=== PATIENT | male | born 1975 | race Caucasian/White ===

== ENCOUNTER 2020-04-26 12:17 | Emergency (ER) | payer OTHER ==
[2020-04-26] MEDS ORDERED: DIPH/PERTUSS(ACELL)/TETANUS VAC/PF 0.5 ML SYR (>=10YO) IM ONE (12:26)
[2020-04-26 12:27] VITALS: BP 141/89
--- NOTE | 2020-04-26 12:41 | ER Document Report ---
HPI - HPI Time Seen by Provider: 04/26/20 12:25 Pain Level: 2 Context: Patient is a 44-year-old male who presents to the emergency department with a chief complaint of puncture wounds to his left second and third digit. Patient had a nail gun and the nail gun and bouncing off the wood and the nail gun shot off into his fingers. Patient states that he was able to pull the nail out of his fingers. Patient is unsure as to when his last tetanus immunization was. Patient is right hand dominant. - ROS Systems Reviewed and Negative: Yes All other systems reviewed and negative - CONSTITUTIONAL Constitutional: DENIES: Fever, Chills - NEURO Neurology: DENIES: Weakness - MUSCULOSKELETAL Musculoskeletal: REPORTS: Extremity pain - left 2nd and 3rd digit of hand - DERM Skin Color: Normal Skin Problems: None Past Medical History - General Information source: Patient - Social History Smoking Status: Never Smoker Chew tobacco use (# tins/day): No Frequency of alcohol use: Occasional Drug Abuse: None Family History: Reviewed & Not Pertinent Vertical Provider Document - CONSTITUTIONAL Agree With Documented VS: Yes Exam Limitations: No Limitations General Appearance: No Apparent Distress - HEENT HEENT: Atraumatic, Normocephalic, PERRLA - RESPIRATORY Respiratory: No Respiratory Distress - CARDIOVASCULAR Cardiovascular: Regular Rate, Regular Rhythm Pulses: Normal: Radial - MUSCULOSKELETAL/EXTREMETIES Musculoskeletal/Extremeties: FROM - NEURO Level of Consciousness: Awake, Alert, Appropriate - DERM Integumentary: Warm, Dry, No Rash Notes: Entrance and exit puncture wounds noted to left second and third digits Course - Re-evaluation Re-evalutation: 04/26/20 13:11 Patient's x-ray is negative for any acute fracture. We will start the patient on Keflex to prevent infection. Patient received his tetanus vaccine here in the emergency department. He will follow-up with his primary care provider if needed. Follow-up precautions were given. Verbal discharge instructions were given to the patient. They verbalized understanding. They are stable for discharge. - Vital Signs Vital signs: Temp Pulse Resp BP Pulse Ox 98.9 F 85 18 141/89 H 96 04/26/20 12:26 04/26/20 12:26 04/26/20 12:26 04/26/20 12:26 04/26/20 12:26 Discharge - Discharge Clinical Impression: Puncture wound of finger Qualifiers: Encounter type: initial encounter Qualified Code(s): S61.239A - Puncture wound without foreign body of unspecified finger without damage to nail, initial encounter Condition: Stable Disposition: HOME, SELF-CARE Additional Instructions: You were seen today in the emergency department for puncture wounds to your fingers. Your x-ray did not show any fractures. Take your antibiotics as prescribed. Keep the area clean and dry. You also received your tetanus vaccine here in the emergency department. Follow-up with your primary care provider if needed. Return if you have redness or pus coming from the area. Prescriptions: Cephalexin Monohydrate [Keflex 500 mg Capsule] 500 mg PO Q6H 5 Days #20 capsule
--- NOTE | 2020-04-26 13:02 | RADIOLOGY REPORT (SQ) ---
EXAM DESCRIPTION: FINGER LEFT IMAGES COMPLETED DATE/TIME: 04/26/2020 12:43 pm REASON FOR STUDY: puncture wounds to 2nd and third digit COMPARISON: None. NUMBER OF VIEWS: Three views. TECHNIQUE: AP view of the left hand and lateral and oblique images acquired of the left 2nd and 3rd fingers LIMITATIONS: None. FINDINGS: MINERALIZATION: Normal. BONES: No acute fracture or dislocation. SOFT TISSUES: No soft tissue swelling. No radiopaque foreign body. IMPRESSION: No radiographic evidence for acute fracture or radiopaque foreign body at the left 2nd a nd 3rd fingers. TECHNICAL DOCUMENTATION: JOB ID: [id number] [employer]- All Rights Reserved Reading location - IP/workstation name: [email or web address]
== END 2020-04-26 13:46 | disposition home or self-care (01) ==
LOC: ER 12:17
DX: S61.231A Puncture wound without foreign body of left index finger without damage to nail, initial encounter (principal); S61.233A Puncture wound without foreign body of left middle finger without damage to nail, initial encounter; W29.4XXA Contact with nail gun, initial encounter; Z23 Encounter for immunization
CPT/HCPCS: 90471; 90715; 99283